=== PATIENT | female | born 1985 | race Caucasian/White ===

== ENCOUNTER 2024-07-07 06:01 | Observation (INO) | payer OTHER ==
[2024-07-07] VITALS (8 sets, daily range): BP systolic 108–120; BP diastolic 68–82; TEMP 97.2–97.9; O2SAT 92–96
[~2024-07-07] VITALS: Ht 160 cm; Wt 75.9 kg
[~2024-07-07 06:01] MED LIST: ATOR1TAB19 PO; BACI1TAB20 PO; FAMO20TA PO; FENO48TA8 PO; HYDR12CA PO; LISI10TA22 PO; OMEG10002 PO; SERT50TA29 PO; SUMA50TA2 PO
[2024-07-07] MEDS ORDERED: LR 1,000 ML IV SCH (06:20)
[2024-07-07] MEDS ORDERED: dexmedeTOMIDine (4MCG/ML)200MCG/50ML BTL (PRECEDEX) As Ordered ONE (06:49)
[2024-07-07] MEDS ORDERED: LIDOCAINE 2% 100MG/5ML SDV (FOR ANES.) As Ordered ONE (06:49)
[2024-07-07] MEDS ORDERED: propofoL 200 MG/20 ML VIAL As Ordered ONE (06:49)
[2024-07-07] MEDS ORDERED: ONDANSETRON 4MG 2ML VIAL As Ordered ONE (06:49)
[2024-07-07] MEDS ORDERED: ROCURONIUM BROMIDE 50MG/5ML VIAL As Ordered ONE (06:49)
[2024-07-07] MEDS ORDERED: SUGAMMADEX SODIUM 500 MG/5 ML VIAL (BRIDION) As Ordered ONE (06:49)
[2024-07-07] MEDS ORDERED: fentaNYL 250 MCG/5 ML INJECTION As Ordered ONE (06:57)
[2024-07-07] MEDS ORDERED: MIDAZOLAM INJ 2MG/2ML VIAL As Ordered ONE (06:57)
[2024-07-07] MEDS: SCOPOLAMINE 1MG TRANSDERMAL PATCH TOP ONE (07:16)
[2024-07-07] MEDS ORDERED: HOME MED LIST COMPLETE! XX SCH (07:20)
[2024-07-07] MEDS: ceFAZolin SOD 2 GM IV ONCE IV ONE (07:54)
[2024-07-07] MEDS: HEPARIN SOD (PORCINE) 5000UNITS/ML 1ML VIAL/SYRINGE SQ ONE (07:56)
[2024-07-07] MEDS ORDERED: ACETAMINOPHEN 1000MG/100ML IV BAG As Ordered ONE (08:01)
[2024-07-07] MEDS: GENTAMICIN SULF 80MG/2ML VIAL As Ordered ONE (09:08)
[2024-07-07] MEDS ORDERED: HYDROmorphone HCL 2MG/ML 1ML VIAL As Ordered ONE (09:37)
[2024-07-07] MEDS: EPINEPHrine INJ 1 MG/ML 1ML AMP As Ordered ONE (10:14)
[2024-07-07] MEDS: LIDOCAINE 1% MDV 20ML VIAL As Ordered ONE (10:14)
[2024-07-07] MEDS: BUPivacaine LIPOSOME/PF 266MG 20ML VIAL (13.3MG/ML)(EXPAREL) As Ordered ONE (11:17)
[2024-07-07] MEDS ORDERED: HYDROMORPHONE HCL 0.5 MG/ 0.5 ML SYRINGE IV PRN (11:30)
[2024-07-07] MEDS ORDERED: ONDANSETRON 4MG 2ML VIAL IV PRN ×2 (11:30→11:45)
[2024-07-07] MEDS ORDERED: oxyCODONE 5MG TAB PO PRN (11:30)
[2024-07-07] MEDS ORDERED: fentaNYL 100 MCG/2 ML INJECTION IV PRN (11:30)
[2024-07-07] MEDS ORDERED: PERCOCET 5MG/325MG TAB PO PRN (11:45)
[2024-07-07] MEDS: ACETAMINOPHEN 325 MG TAB PO PRN (13:37)
[2024-07-07] MEDS: traMADol 50 MG TAB PO PRN (14:38)
[2024-07-07] MEDS: ceFAZolin SODIUM 2 GM in DEXTROSE 5% (D5W) ADV/MINI-BAG 50 ML IV SCH (16:07)
[2024-07-08 05:20] VITALS: BP 122/76; TEMP 97.2; O2SAT 96
[2024-07-08 08:18] VITALS: BP 125/79
[2024-07-08] MEDS: hydroCHLOROthiazide 12.5 MG CAPSULE PO SCH (08:18)
[2024-07-08] MEDS: SERTRALINE HCL 50 MG TAB PO SCH (08:19)
[2024-07-08] MEDS: FENOFIBRATE 48MG TABLET (TRICOR) PO SCH (08:20)
[2024-07-08] MEDS: ATORVASTATIN 10 MG TAB PO SCH (08:20)
[2024-07-08] MEDS ORDERED: TRAM50TA2 PO (11:03)
== END 2024-07-08 12:20 | disposition home or self-care (01) ==
LOC: M SDC 06:01 → M RR INP 06:02 → M MS5PR 13:20
PROVIDERS: ADMIT Plastic Surgery Surgery of the Hand; ATTEND Plastic Surgery Surgery of the Hand
DX: N62 Hypertrophy of breast (principal); M54.6 Pain in thoracic spine; I10 Essential (primary) hypertension; J30.2 Other seasonal allergic rhinitis; Z91.048 Other nonmedicinal substance allergy status; Z79.899 Other long term (current) drug therapy
CPT/HCPCS: 19318; 88300; 88305; 96374; 96376; G0378; J0131; J0171; J0665; J0666; J0690; J1100; J1171; J1580; J2250; J2405; J3010